=== PATIENT | male | born 1995 | race Caucasian/White ===

== ENCOUNTER 2020-02-14 11:00 | Outpatient (CLI) | payer OTHER | END 2020-02-14 11:01 | disposition home or self-care (01) | LOC: COV 11:00 | PROVIDERS: ATTEND Surgery | DX: Z01.812 Encounter for preprocedural laboratory examination (principal); Z20.828 Contact with and (suspected) exposure to other viral communicable diseases; L05.01 Pilonidal cyst with abscess ==

== ENCOUNTER 2020-02-18 08:16 | Day surgery (SDC) | payer OTHER ==
[~2020-02-18 08:16] MED LIST: CEFAZOLIN SODIUM IN 0.9 % NACL 2 GM/100 ML BAG IV ONE; metroNIDAZOLE 500 MG/100 ML 500 MG/100 ML BAG ONE
[2020-02-18] MEDS ORDERED: LIDOCAINE-MPF 2% 5 ML VIAL IM ONE (08:17)
[2020-02-18] MEDS ORDERED: ONDANSETRON 4 MG/2 ML VIAL IVP ONE (08:17)
[2020-02-18] MEDS ORDERED: KETOROLAC 30 MG/ML VIAL IVP ONE (08:17)
[2020-02-18] MEDS ORDERED: NEOSTIGMINE 1 MG/1 ML 10 ML MDV IVP ONE (08:17)
[2020-02-18] MEDS ORDERED: MIDAZOLAM 2 MG/2 ML VIAL IVP ONE (08:17)
[2020-02-18] MEDS ORDERED: GLYCOPYRROLATE 1 MG/5 ML VIAL IVP ONE (08:17)
[2020-02-18] MEDS ORDERED: fentaNYL 100 MCG/2 ML VIAL IVP ONE (08:17)
[2020-02-18] MEDS ORDERED: PROPOFOL 200 MG/20 ML VIAL IVP ONE (08:17)
[2020-02-18] MEDS ORDERED: ROCURONIUM 50 MG/5 ML VIAL IVP ONE (08:17)
[2020-02-18] MEDS ORDERED: DEXAMETHASONE 4 MG/ML VIAL IVP ONE (08:17)
[2020-02-18] MEDS ORDERED: LACTATED RINGERS 1,000 ML IV ONE ×3 (08:24→11:12)
[2020-02-18] MEDS ORDERED: BUPIVACAINE 0.25% PF 30 ML VIAL ONE (08:44)
--- NOTE | 2020-02-18 08:44 | ANESTHESIA ---
Pre-Anesthesia VS, & Labs - Diagnosis pilonidal cyst - Procedure Pilonidal Cystectomy Vital Signs: Temp Pulse Resp BP Pulse Ox 36.2 C L 65 16 134/87 H 97 02/18/20 08:28 02/18/20 08:28 02/18/20 08:28 02/18/20 08:28 02/18/20 08:28 Height: 6 ft 2 in Weight (kg): 89 kg Body Mass Index: 25.2 BMI Classification: Overweight - NPO >8 hours - Lab Results Lab results reviewed: Yes Home Medications and Allergies Home Medications: Ambulatory Orders No Known Home Medications 02/11/20 No Known Home Medications 02/11/20 Allergies/Adverse Reactions: Allergies Allergy/AdvReac Type Severity Reaction Status Date / Time No Known Drug Allergies Allergy Verified 02/11/20 15:10 Anes History & Medical History - Anesthetic History Anesthesia Complications: reports: No previous complications Family history of Anesthesia Complications: Denies Family history of Malignant Hyperthermia: Denies - Medical History Cardiovascular: reports: None Pulmonary: reports: None Gastrointestinal: reports: GERD Urinary: reports: None Musculoskeletal: reports: None Endocrine/Autoimmune: reports: None Skin: reports: None Exam General: Alert, Oriented x3, Cooperative, No acute distress Dental: WNL Mouth Openin Fingerbreadth Neck Mobility: Normal Mallampati classification: II Respiratory: Lungs clear, Normal breath sounds, No respiratory distress, No accessory muscle use Cardiovascular: Regular rate, Normal S1, Normal S2, No murmurs Plan Anesthesia Type: General Consent for Procedure(s) Verified and Reviewed: Yes Code Status: Attempt Resuscitation ASA classification: 1-Healthy patient Is this case an emergency?: No
[2020-02-18] MEDS ORDERED: ATROPINE ABBOJECT 1 MG/10 ML SYRINGE IVP PRN (09:03)
[2020-02-18] MEDS ORDERED: HYDROmorphone 0.5 MG/0.5 ML SYRINGE IVP PRN (09:03)
[2020-02-18] MEDS ORDERED: ONDANSETRON 4 MG/2 ML VIAL IVP PRN (09:03)
[2020-02-18] MEDS ORDERED: MORPHINE 2 MG/ML CARPUJECT IVP PRN (09:03)
[2020-02-18] MEDS ORDERED: fentaNYL 100 MCG/2 ML VIAL IVP PRN (09:03)
[2020-02-18] MEDS ORDERED: ePHEDrine 50 MG/ML VIAL IVP PRN (09:03)
[2020-02-18] MEDS ORDERED: METOCLOPRAMIDE 10 MG/2 ML VIAL IVP PRN (09:03)
[2020-02-18] MEDS ORDERED: NALOXONE 0.4 MG/ML VIAL IVP PRN (09:03)
[2020-02-18] MEDS ORDERED: BUPIVACAINE 0.25% PF 30 ML VIAL SUBQ ONE ×2 (09:48)
[2020-02-18] MEDS ORDERED: LACTATED RINGERS 1,000 ML IV SCH (10:00)
[2020-02-18] MEDS ORDERED: BUPIVACAINE 0.25% PF 10 ML VIAL ONE ×2 (10:17→10:19)
[2020-02-18] MEDS ORDERED: HYDROcod/ACETAM 5/325 MG TABLET PO PRN (10:41)
--- NOTE | 2020-02-18 10:44 | OPERATIVE REPORT ---
Operative Report - General Procedure Date: 02/18/20 Pre-Op Diagnosis: pilonidal cyst Procedure Performed: sahara pilonidal cyst excision Post Op Diagnosis: pilonidal cyst - Procedure Note Anesthesia Technique: General ET tube, Local Estimated Blood Loss (mL): 25 Drain/Tube Type: Other (none) Findings: extensive pilonidal cyst disease
[2020-02-18] MEDS ORDERED: HYDROcod/ACETAM 5/325 MG TABLET ONE (11:48)
[2020-02-18 11:50] VITALS: BP 137/90
--- NOTE | 2020-02-18 12:03 | ANESTHESIA POST OP EVALUATION ---
Anesthesia Post Eval - Post Anesthesia Eval Vitals: Last Vital Signs Temp 36.4 C L 02/18/20 10:55 Pulse 84 02/18/20 11:49 Resp 15 02/18/20 11:49 BP 137/90 H 02/18/20 11:49 Pulse Ox 99 02/18/20 11:49 Respiratory Status: Airway Patent Hydration Status: Satisfactory
--- NOTE | 2020-02-18 16:04 | OPERATIVE REPORT ---
DATE OF SERVICE: 02/18/2020 Physician: José Manuel Murphy MD PREOPERATIVE DIAGNOSIS: Pilonidal cyst disease, extensive. POSTOPERATIVE DIAGNOSIS: Pilonidal cyst disease, extensive. PROCEDURE PERFORMED 1. Pilonidal cyst excision, extensive. 2. Angelia procedure. SURGEON: José Manuel Murphy MD MIGRANT LEADER: None. ANESTHESIA: General endotracheal anesthesia, local anesthesia with Marcaine. COMPLICATIONS: None. SPECIMEN: Benign, not sent for Pathology. ESTIMATED BLOOD LOSS: 25 mL. DRAINS: None. INDICATIONS FOR PROCEDURE: Patient is a healthy 24-year-old gentleman with significant chronic inflammation and bloody drainage from a pilonidal cyst. He has a nearly 1 cm inflammatory nodule, left lateral of midline. Approximately 4 cm caudad are four minute sinus tracts. He presents for pilonidal cyst excision. Risks discussed, alternatives discussed, all questions answered, and consent obtained. DETAILS OF PROCEDURE: Patient was properly identified and brought to the operating room. On stretcher, general endotracheal anesthesia was induced. He was then carefully repositioned prone. He was prepped and draped in a sterile fashion and given preoperative antibiotics. Local anesthetic was given. The midline sinus tracts were removed with 11 blade scalpel, removing a minimal amount of skin. An elliptical incision was then made around the left lateral cephalad inflammatory nodule. The incision was then extended left lateral towards the sinus tracts. Skin flaps were then carefully raised. The pilonidal cyst created chronic scarring of the dermis. Scar tissue was sharply excised from the dermis. The pilonidal cyst measured approximately 5 x 2.5 cm. It was removed in its entirety back to normal healthy tissue. Subcutaneous tissue flaps were then mobilized. Hemostasis was then assured. Subcutaneous tissue was closed with interrupted 2-0 Vicryl suture. Buried interrupted subdermal 3-0 Vicryl sutures were then placed. Skin was further loosely approximated with multiple vertical mattress 3-0 nylon sutures. Dressing was applied. He was repositioned supine, awakened and brought to recovery in good condition. TD: 02/18/2020 11:15 [facility]
== END 2020-02-18 08:17 | disposition home or self-care (01) ==
LOC: SDS 08:16
PROVIDERS: ATTEND Surgery
DX: L05.91 Pilonidal cyst without abscess (principal)
CPT/HCPCS: 11771; A9270; J0690; J7120